=== PATIENT | female | born 1960 | race Caucasian/White ===

== ENCOUNTER 2017-12-24 07:42 | Outpatient (CLI) | payer BC, OTHER ==
--- NOTE | 2017-12-24 10:18 | MRI ---
MRI CERVICAL SPINE NONCONTRAST: 12/24/2017 HISTORY: Cervical radiculopathy. Numbness in fingers of right hand. Neck pain since September. COMPARISON: None available. FINDINGS: The cerebellar tonsils are slightly low lying but maintain normal globular shape. The cervicomedulla ry junction demonstrates a normal MRI appearance. Normal signal intensity is demonstrated in the bone marrow. C2-C3: There is no disk bulge or disk herniation. The central spinal canal and neural foramina are patent. C3-C4: There is minimal central disk protrusion, which narrows the ventral subarachnoid space; howev er, there is no significant narrowing of the central spinal canal, and the neural foramina are patent . C4-C5: There is mild disk osteophyte complex narrowing the ventral subarachnoid space without signif icant narrowing of the central spinal canal. The neural foramina are patent. C5-C6: There is loss of intervertebral disk height. There is a broad-based disk osteophyte complex resulting in generalized narrowing of the central spinal canal. There is flattening of the anterior aspect of the spinal cord, but normal signal intensity is present in the spinal cord. Uncinate proce ss hypertrophy is present bilaterally. Findings result in mild bilateral neural foraminal narrowing, greater on the left. C6-C7: There is mild disk osteophyte complex, but the central spinal canal and neural foramina are p atent. C7-T1: There is mild disk osteophyte complex, but the central spinal canal and neural foramina are p atent, although there is minimal encroachment on the left neural foramen. IMPRESSION: Mild degenerative change in the cervical spine with findings greatest at the C5-C6 level. POS: NEGRITA
--- NOTE | 2017-12-24 11:03 | MRI ---
MRI THORACIC SPINE WITHOUT CONTRAST: Date: 12/24/17 HISTORY: Thoracic back pain and numbness of 3 fingers of right hand. FINDINGS: The vertebral body heights and marrow signal are well maintained. There focal areas of increased T1 a nd T2 signal in the vertebral bodies of T9, T10, and T11 vertebral bodies, consistent with hemangioma s. No focal disc herniation is seen. The thoracic spinal cord demonstrates normal course, caliber, an d signal. There are mild degenerative changes in the thoracic spine. Eccentric facet hypertrophic diann nge is noted on the right at T10-T11 level with probable abutment of the adjacent posterolateral aspe ct of the spinal cord. The paraspinal musculature is normal. IMPRESSION: Asymmetric right facet hypertrophic changes at T10-11 level with probable abutment of the adjacent sp inal cord posterolaterally. POS: NEGRITA
== END 2017-12-24 07:43 | disposition home or self-care (01) ==
LOC: TBSIIMAG 07:42
PROVIDERS: ATTEND Neurological Surgery
DX: M54.12 Radiculopathy, cervical region (principal); M54.6 Pain in thoracic spine
CPT/HCPCS: 72141; 72146

== ENCOUNTER 2019-07-06 15:14 | Outpatient (CLI) | payer OTHER ==
--- NOTE | 2019-07-06 16:09 | MRI ---
MRI lumbar spine noncontrast HISTORY: Low back pain. Radiculopathy. FINDINGS: Radiographs are not available for direct correlation, therefore the lowest lumbar type vert ebra will be designated as L5, with the remainder number accordingly. Scattered hemangiomas are apparent within the bone marrow. Mild discogenic endplate changes. T12-L1, L1-2: Mild osteophytosis. Central canal and neural foramina are patent. L2-3: Desiccation of the disc. Mild disc space narrowing. Minimal chronic appearing depression of the L3 superior endplate. Mild posterior disc bulge and circumferential degenerative changes. Small amount of fluid within the facets. Mild stenosis of the central canal and each neural foramen. L3-4: Desiccation of the disc. Minimal disc bulge. Osteophytosis and fluid of the facets. Thecal sac is patent. Mild right and moderate to severe left foraminal stenoses. L4-5: Desiccation of the disc. Mild disc bulge. Thecal sac is patent. Osteophytosis and fluid of the facets. Moderate right and mild left foraminal stenoses. L5-S1: Minimal disc bulge. Osteophytosis of the facets. Thecal sac is patent. Mild stenosis of each n eural foramen. IMPRESSION : Degenerative changes throughout the lower lumbar spine as detailed above. Stenoses are most severe at the left L3-4 and right L4-5 neural foramina. Clinical correlation regarding the left L3 and right L4 dermatomes is required.
== END 2019-07-06 15:15 | disposition home or self-care (01) ==
LOC: TBSIIMAG 15:14
PROVIDERS: ATTEND Neurological Surgery
DX: M47.26 Other spondylosis with radiculopathy, lumbar region (principal); M48.061 Spinal stenosis, lumbar region without neurogenic claudication
CPT/HCPCS: 72148

== ENCOUNTER 2020-07-28 19:12 | Inpatient (IN) | payer OTHER ==
[~2020-07-28 19:12] MED LIST: Iopamidol-370 76% 500 ML 1 ML ONE
[2020-07-28 20:07] LABS: #Lymphocytes 1.6 thou/uL (1.20-3.40); #Monocytes 0.4 thou/uL (0.11-0.59); %Basophils 0.5 % (0.0-1.0); %Eosinophils 0.4 % (0.0-10.0); %Lymphocytes 15.4 % (21.0-51.0); %Monocytes 4.3 % (0.0-10.0); %Neutrophils 79.5 % (42.0-75.0); Hemoglobin 11.2 g/dL (12.0-16.0); Mean Corpuscular Hemoglobin 33.1 pg (27.0-31.0); Mean Corpuscular Volume 91.9 fL (78.0-98.0); Mean Platelet Volume 7.4 fL (7.4-10.4); Platelet Count 324 thou/uL (130-400); RBC Distribution Width 14.4 % (11.5-14.5); Red Blood Cell (RBC) Count 3.37 mill/uL (4.20-5.40); White Blood Cell (WBC) Count 10.1 thou/uL (4.8-10.8)
[2020-07-28 20:08] LABS: Albumin 3.7 g/dL (3.5-5.0)
[2020-07-28 20:09] LABS: Chloride 97 mmol/L (98-107); Potassium 3.2 mmol/L (3.5-5.1); Sodium 134 mmol/L (136-145)
[2020-07-28 20:11] LABS: Globulin 3.2 g/dL (2.4-3.5); Glucose 270 mg/dL (70-105); Protein, Total 6.9 g/dL (6.0-8.3)
[2020-07-28 20:12] LABS: Anion Gap 16 mmol/L (10-20); Bilirubin, Total 1.7 mg/dL (0.2-1.2); Carbon Dioxide 24 mmol/L (22-29)
[2020-07-28 20:13] LABS: Alkaline Phosphatase 130 U/L (40-110)
[2020-07-28 20:14] LABS: Calc. Creatinine Clearance 0 mL/min (70-130)
[2020-07-28 20:15] LABS: BUN (Urea Nitrogen) 13 mg/dL (9.8-20.1)
[2020-07-28 20:16] LABS: AST (SGOT) 22 U/L (5-34)
[2020-07-28] MEDS ORDERED: Albuterol 200 PUFF (6.7GM INHALER) ONE (20:20)
[2020-07-28] MEDS ORDERED: Benzonatate 100 MG CAP ONE (20:20)
[2020-07-28 22:51] LABS: ALT (SGPT) 23 U/L (8-55)
[2020-07-28] MEDS ORDERED: Acetaminophen 500 MG TAB ONE (22:59)
[2020-07-28] MEDS ORDERED: Guaifenesin DM 100-10/5 ML UDCUP PO PRN (23:29)
[2020-07-28] MEDS ORDERED: Dextrose 50% Abboject 50 ML SYRINGE SLOW IVP PRN (23:29)
[2020-07-28] MEDS ORDERED: Ondansetron PF 4 MG/2 ML Vial IVP PRN (23:29)
[2020-07-28] MEDS ORDERED: Dextrose 5% in Water 1,000 ML IV PRN (23:29)
[2020-07-28] MEDS ORDERED: HYDROcodone/Acetaminophen 7.5/325 mg Tablet PO PRN (23:29)
[2020-07-28] MEDS ORDERED: Acetaminophen 325 MG TAB PO PRN (23:29)
[2020-07-28] MEDS ORDERED: hydrALAZINE 20 MG/ML VIAL SLOW IVP PRN (23:32)
[2020-07-28] MEDS ORDERED: Potassium Chloride 20 MEQ TAB PO SCH (23:59)
[2020-07-28] MEDS ORDERED: Ivermectin 3 MG TAB PO SCH (23:59)
[2020-07-28] MEDS ORDERED: Dexamethasone 4 MG TAB PO SCH (23:59)
[2020-07-29] MEDS: Cefepime 1 GM in Sodium Chloride 0.9% 100 ML IVPB SCH ×2 (01:30→12:06)
[2020-07-29 02:01] VITALS: BMI 27.8
[2020-07-29] MEDS: HumaLOG 300 UNITS/3 ML VIAL SC PRN ×3 (06:17→17:45)
[2020-07-29 06:26] LABS: ALT (SGPT) 20 U/L (8-55); AST (SGOT) 21 U/L (5-34); Albumin 3.5 g/dL (3.5-5.0); Alkaline Phosphatase 130 U/L (40-110); Anion Gap 14 mmol/L (10-20); BUN (Urea Nitrogen) 7 mg/dL (9.8-20.1); Bilirubin, Total 1.2 mg/dL (0.2-1.2); Calc. Creatinine Clearance 118 mL/min (70-130); Calcium 8.9 mg/dL (7.8-10.44); Carbon Dioxide 26 mmol/L (22-29); Chloride 100 mmol/L (98-107); Globulin 3.2 g/dL (2.4-3.5); Glucose 304 mg/dL (70-105); Potassium 4.4 mmol/L (3.5-5.1); Protein, Total 6.7 g/dL (6.0-8.3); Sodium 136 mmol/L (136-145)
[2020-07-29 06:40] LABS: Mean Corpuscular HGB CONC 32.9 g/dL (32.0-36.0); Mean Corpuscular Volume 91.2 fL (78.0-98.0); Mean Platelet Volume 7.3 fL (7.4-10.4); Platelet Count 327 thou/uL (130-400); RBC Distribution Width 14.8 % (11.5-14.5); Red Blood Cell (RBC) Count 3.34 mill/uL (4.20-5.40); White Blood Cell (WBC) Count 8.7 thou/uL (4.8-10.8)
[2020-07-29] MEDS: Albuterol 200 PUFF (6.7GM INHALER) INH SCH ×6 (07:07→22:33)
[2020-07-29 07:12] LABS: Band 11 % (5-11); Lymphocytes 4 % (21-51); MDiff Complete? YES; Monocytes 1 % (0-10); Neutrophil 83 % (42-75); Platelet Morphology Comment Appears Adequate; Polychromasia SLIGHT = 2-3 cells (100X) (0-2/hpf); Reactive Lymphocytes 1 % (0-10)
[2020-07-29] MEDS ORDERED: Dexamethasone 4 MG TAB PO SCH (08:00)
[2020-07-29] MEDS: Alogliptin 25 MG TAB PO SCH (08:33)
[2020-07-29] MEDS: guaiFENesin ER 600 MG TAB PO SCH ×2 (08:33→21:09)
[2020-07-29] MEDS: Enoxaparin Sodium 40 MG/0.4 ML SYRINGE SC SCH (08:33)
[2020-07-29] MEDS: Zinc Sulfate 220 MG CAP PO SCH (08:33)
[2020-07-29] MEDS ORDERED: Famotidine 20 MG TAB PO SCH (09:00)
[2020-07-29] MEDS: metFORMIN XR 500 MG TAB PO SCH (21:09)
[2020-07-29] MEDS: Lantus 1000 UNITS/10 ML VIAL SC SCH (21:09)
[2020-07-29] MEDS: Benzonatate 100 MG CAP PO PRN (21:09)
[2020-07-29] MEDS: methylPREDNISolone Sod Succ 40 MG VIAL IVP SCH (21:10)
[2020-07-29] MEDS: Zolpidem Tartrate 5 MG TAB PO PRN (22:49)
[2020-07-30] MEDS: Cefepime 1 GM in Sodium Chloride 0.9% 100 ML IVPB SCH (01:31)
[2020-07-30] MEDS: Albuterol 200 PUFF (6.7GM INHALER) INH SCH ×6 (01:32→22:26)
[2020-07-30] MEDS: methylPREDNISolone Sod Succ 40 MG VIAL IVP SCH ×3 (05:39→21:05)
[2020-07-30] MEDS: HumaLOG 300 UNITS/3 ML VIAL SC PRN ×3 (05:43→17:26)
[2020-07-30 07:38] LABS: #Monocytes 0.4 thou/uL (0.11-0.59); #Neutrophils 6.4 thou/uL (1.40-6.50); %Basophils 0.2 % (0.0-1.0); %Eosinophils 0.3 % (0.0-10.0); %Lymphocytes 12.2 % (21.0-51.0); %Monocytes 4.6 % (0.0-10.0); %Neutrophils 82.7 % (42.0-75.0); Hemoglobin 10.2 g/dL (12.0-16.0); Mean Corpuscular HGB CONC 35.7 g/dL (32.0-36.0); Mean Corpuscular Hemoglobin 32.6 pg (27.0-31.0); Mean Corpuscular Volume 91.3 fL (78.0-98.0); Mean Platelet Volume 7.2 fL (7.4-10.4); Platelet Count 399 thou/uL (130-400); RBC Distribution Width 15.1 % (11.5-14.5); Red Blood Cell (RBC) Count 3.12 mill/uL (4.20-5.40); White Blood Cell (WBC) Count 7.8 thou/uL (4.8-10.8)
[2020-07-30 07:59] LABS: ALT (SGPT) 18 U/L (8-55); AST (SGOT) 17 U/L (5-34); Albumin 3.4 g/dL (3.5-5.0); Alkaline Phosphatase 117 U/L (40-110); Anion Gap 18 mmol/L (10-20); BUN (Urea Nitrogen) 12 mg/dL (9.8-20.1); CRP (Inflammatory) 8.16 mg/dL (= or < 0.5); Calc. Creatinine Clearance 117 mL/min (70-130); Calcium 8.9 mg/dL (7.8-10.44); Carbon Dioxide 22 mmol/L (22-29); Chloride 100 mmol/L (98-107); Globulin 3.1 g/dL (2.4-3.5); Glucose 318 mg/dL (70-105); Potassium 3.7 mmol/L (3.5-5.1); Protein, Total 6.5 g/dL (6.0-8.3); Sodium 136 mmol/L (136-145)
[2020-07-30] MEDS: guaiFENesin ER 600 MG TAB PO SCH ×2 (09:07→21:01)
[2020-07-30] MEDS: metFORMIN XR 500 MG TAB PO SCH ×2 (09:07→21:04)
[2020-07-30] MEDS: Lantus 1000 UNITS/10 ML VIAL SC SCH ×2 (09:07→21:06)
[2020-07-30] MEDS: Zinc Sulfate 220 MG CAP PO SCH (09:07)
[2020-07-30] MEDS: Enoxaparin Sodium 40 MG/0.4 ML SYRINGE SC SCH ×2 (09:07→21:01)
[2020-07-30] MEDS: Alogliptin 25 MG TAB PO SCH (09:07)
[2020-07-30] MEDS: Zolpidem Tartrate 5 MG TAB PO PRN (21:02)
[2020-07-30] MEDS: Benzonatate 100 MG CAP PO PRN (21:02)
[2020-07-31] MEDS: Albuterol 200 PUFF (6.7GM INHALER) INH SCH ×6 (02:08→22:31)
[2020-07-31] MEDS: methylPREDNISolone Sod Succ 40 MG VIAL IVP SCH ×2 (05:35→17:33)
[2020-07-31] MEDS: HumaLOG 300 UNITS/3 ML VIAL SC PRN ×2 (05:36→17:33)
[2020-07-31 06:00] LABS: #Eosinphils 0.1 thou/uL (0.0-0.7); #Lymphocytes 1.5 thou/uL (1.20-3.40); #Monocytes 0.6 thou/uL (0.11-0.59); #Neutrophils 9.5 thou/uL (1.40-6.50); %Basophils 0.3 % (0.0-1.0); %Eosinophils 0.6 % (0.0-10.0); %Lymphocytes 12.7 % (21.0-51.0); %Monocytes 4.8 % (0.0-10.0); %Neutrophils 81.6 % (42.0-75.0); Hemoglobin 10.4 g/dL (12.0-16.0); Mean Corpuscular HGB CONC 34.4 g/dL (32.0-36.0); Mean Corpuscular Hemoglobin 31.5 pg (27.0-31.0); Mean Corpuscular Volume 91.7 fL (78.0-98.0); Mean Platelet Volume 7.2 fL (7.4-10.4); Platelet Count 492 thou/uL (130-400); RBC Distribution Width 15.2 % (11.5-14.5); Red Blood Cell (RBC) Count 3.29 mill/uL (4.20-5.40); White Blood Cell (WBC) Count 11.6 thou/uL (4.8-10.8)
[2020-07-31 06:13] LABS: Iron Binding Capacity, Total 194 mcg/dL (265-497)
[2020-07-31 06:14] LABS: Iron 70 ug/dL (50-170)
[2020-07-31 06:33] LABS: Anion Gap 16 mmol/L (10-20); BUN (Urea Nitrogen) 17 mg/dL (9.8-20.1); Calc. Creatinine Clearance 112 mL/min (70-130); Calcium 9.1 mg/dL (7.8-10.44); Carbon Dioxide 25 mmol/L (22-29); Chloride 100 mmol/L (98-107); Glucose 316 mg/dL (70-105); Iron 68 ug/dL (50-170); Iron Binding Capacity, Total 203 mcg/dL (265-497); Potassium 4.2 mmol/L (3.5-5.1); Sodium 137 mmol/L (136-145)
[2020-07-31 06:40] LABS: Ferritin 943.99 ng/mL (10-291)
[2020-07-31] MEDS: Lantus 1000 UNITS/10 ML VIAL SC SCH ×2 (09:10→20:46)
[2020-07-31] MEDS: metFORMIN XR 500 MG TAB PO SCH ×2 (09:10→20:45)
[2020-07-31] MEDS: Alogliptin 25 MG TAB PO SCH (09:10)
[2020-07-31] MEDS: Enoxaparin Sodium 40 MG/0.4 ML SYRINGE SC SCH ×2 (09:10→20:45)
[2020-07-31] MEDS: Zinc Sulfate 220 MG CAP PO SCH (09:10)
[2020-07-31] MEDS: Aspirin 81 mg Enteric Coated Tablet PO SCH (09:10)
[2020-07-31] MEDS: guaiFENesin ER 600 MG TAB PO SCH ×2 (09:10→20:45)
[2020-07-31] MEDS: Benzonatate 100 MG CAP PO PRN (20:45)
[2020-07-31] MEDS: Zolpidem Tartrate 5 MG TAB PO PRN (20:45)
[2020-08-01] MEDS: Albuterol 200 PUFF (6.7GM INHALER) INH SCH ×6 (02:44→20:34)
[2020-08-01] MEDS: methylPREDNISolone Sod Succ 40 MG VIAL IVP SCH ×2 (05:27→17:24)
[2020-08-01 06:45] LABS: Hemoglobin 10.4 g/dL (12.0-16.0); Mean Corpuscular HGB CONC 35.9 g/dL (32.0-36.0); Mean Corpuscular Hemoglobin 32.5 pg (27.0-31.0); Mean Corpuscular Volume 90.5 fL (78.0-98.0); Mean Platelet Volume 6.9 fL (7.4-10.4); Platelet Count 513 thou/uL (130-400); RBC Distribution Width 15.7 % (11.5-14.5); White Blood Cell (WBC) Count 13.2 thou/uL (4.8-10.8)
[2020-08-01 06:50] LABS: Anion Gap 17 mmol/L (10-20); BUN (Urea Nitrogen) 16 mg/dL (9.8-20.1); Calc. Creatinine Clearance 118 mL/min (70-130); Calcium 8.6 mg/dL (7.8-10.44); Carbon Dioxide 24 mmol/L (22-29); Chloride 100 mmol/L (98-107); Glucose 125 mg/dL (70-105); Potassium 3.2 mmol/L (3.5-5.1); Sodium 138 mmol/L (136-145)
[2020-08-01 08:18] LABS: #Eosinphils 0.1 thou/uL (0.0-0.7); #Lymphocytes 3.2 thou/uL (1.20-3.40); #Monocytes 0.8 thou/uL (0.11-0.59); %Basophils 0.3 % (0.0-1.0); %Eosinophils 0.7 % (0.0-10.0); %Lymphocytes 24.2 % (21.0-51.0); %Monocytes 6.3 % (0.0-10.0); %Neutrophils 68.5 % (42.0-75.0); Anisocytosis SLIGHT = 6-15 cells (100X) (0-5/hpf); Band 4 % (5-11); Lymphocytes 23 % (21-51); MDiff Complete? YES; Metamyelocyte 2 % (0-0); Monocytes 7 % (0-10); Myelocyte 2 % (0-0); Neutrophil 62 % (42-75); Platelet Morphology Comment Appears Increased; Polychromasia MODERATE = 3-4 cells (100X) (0-2/hpf)
[2020-08-01] MEDS: Enoxaparin Sodium 40 MG/0.4 ML SYRINGE SC SCH ×2 (09:35→20:25)
[2020-08-01] MEDS: Alogliptin 25 MG TAB PO SCH (09:35)
[2020-08-01] MEDS: Zinc Sulfate 220 MG CAP PO SCH (09:35)
[2020-08-01] MEDS: guaiFENesin ER 600 MG TAB PO SCH ×2 (09:35→20:26)
[2020-08-01] MEDS: Aspirin 81 mg Enteric Coated Tablet PO SCH (09:35)
[2020-08-01] MEDS: Lantus 1000 UNITS/10 ML VIAL SC SCH ×2 (09:36→20:26)
[2020-08-01] MEDS: metFORMIN XR 500 MG TAB PO SCH ×2 (09:36→20:25)
[2020-08-01] MEDS: HumaLOG 300 UNITS/3 ML VIAL SC PRN ×2 (11:50→17:23)
[2020-08-01] MEDS: Benzonatate 100 MG CAP PO PRN (20:26)
[2020-08-01] MEDS: Zolpidem Tartrate 5 MG TAB PO PRN (20:26)
[2020-08-02] MEDS: Albuterol 200 PUFF (6.7GM INHALER) INH SCH ×4 (04:17→14:46)
[2020-08-02] MEDS: methylPREDNISolone Sod Succ 40 MG VIAL IVP SCH (05:28)
[2020-08-02] MEDS: guaiFENesin ER 600 MG TAB PO SCH (08:09)
[2020-08-02] MEDS: Aspirin 81 mg Enteric Coated Tablet PO SCH (08:10)
[2020-08-02] MEDS: Enoxaparin Sodium 40 MG/0.4 ML SYRINGE SC SCH (08:10)
[2020-08-02] MEDS: Zinc Sulfate 220 MG CAP PO SCH (08:10)
[2020-08-02] MEDS: Alogliptin 25 MG TAB PO SCH (08:10)
[2020-08-02] MEDS: Lantus 1000 UNITS/10 ML VIAL SC SCH (08:10)
[2020-08-02] MEDS: metFORMIN XR 500 MG TAB PO SCH (08:10)
[2020-08-02 12:04] VITALS: BP 133/77; TEMP 98.5
== END 2020-08-02 17:21 | disposition home or self-care (01) | DRG 177 ==
LOC: ERS 19:12 → T4-B 23:29 → OBSVTOIN 07-29 16:02
PROVIDERS: ADMIT Internal Medicine; ATTEND Internal Medicine
PROC: 8E0ZXY6 Isolation (ICD-10-PCS; principal; 2020-07-28)
DX: U07.1 COVID-19 (principal); J12.82 Pneumonia due to coronavirus disease 2019; J96.01 Acute respiratory failure with hypoxia; R79.1 Abnormal coagulation profile; E11.65 Type 2 diabetes mellitus with hyperglycemia; D64.9 Anemia, unspecified; M47.816 Spondylosis without myelopathy or radiculopathy, lumbar region; Z90.710 Acquired absence of both cervix and uterus; Z79.899 Other long term (current) drug therapy; Z79.84 Long term (current) use of oral hypoglycemic drugs; Z83.6 Family history of other diseases of the respiratory system
CPT/HCPCS: 36415; 36416; 71045; 71275; 80048; 80053; 82607; 82728; 82746; 83540; 83550; 83880; 84484; 85007; 85025; 85027; 85379; 86140; 93005; 96365; 96372; G0378; J0692; J1650; J1815; J2920; J3490; J8540; Q9967